=== PATIENT | male | born 1940 | race Caucasian/White ===

== ENCOUNTER → 2018-02-11 | Outpatient (CLI) | payer OTHER ==
[~2018-02-11] MED LIST: ASPIRIN EC81 M1 PO; AZILECT1 MG PO; CARBIDOPA-LEVO1 EA17 PO; CARBIDOPA-LEVO1 EAC6 PO; CLONAZEPAM 0.50.5 M1 PO; LUMIGAN2.5 M1 OP; MELOXICAM7.5 MG PO; MOBIC7.5 M1 PO; NEURONTIN 300300 M1 PO; PAXIL10 MG PO; TRAMADOL 50 MG50 MG PO; TRAMADOL HCL50 MG PO; VITAMIN D31000 UNI2 PO; ZYRTEC10 MG PO
== END ==
LOC: RAD 14:16
DX: J15.3 Pneumonia due to streptococcus, group B (principal)